=== PATIENT | male | born 1965 | race Caucasian/White ===

== ENCOUNTER 2017-01-24 12:31 | Emergency (ER) | payer OTHER ==
[~2017-01-24] VITALS: Wt 83.9 kg
[~2017-01-24 12:31] MED LIST: DAYPRO600 M1 PO; KEFLEX500 MG PO; NORCO 325 MG-51 TAB PO; SKELAXIN800 MG PO
[2017-01-24] MEDS ORDERED: IBU800 MG PO (14:32)
[2017-01-24] MEDS ORDERED: NORCO 5-325 TA1 EACH PO (14:32)
== END 2017-01-24 14:38 | disposition home or self-care (01) ==
LOC: ED 12:31
DX: S62.366A Nondisplaced fracture of neck of fifth metacarpal bone, right hand, initial encounter for closed fracture (principal); F17.200 Nicotine dependence, unspecified, uncomplicated; W22.8XXA Striking against or struck by other objects, initial encounter; Y93.89 Activity, other specified; Y92.69 Other specified industrial and construction area as the place of occurrence of the external cause; Y99.9 Unspecified external cause status

== ENCOUNTER → 2017-02-07 | Outpatient (CLI) | payer OTHER ==
[~2017-02-07] MED LIST changes: +IBU800 MG PO; +NORCO 5-325 TA1 EACH PO
== END | disposition home or self-care (01) ==
LOC: ORTHO 03:06
DX: S62.306D Unspecified fracture of fifth metacarpal bone, right hand, subsequent encounter for fracture with routine healing (principal); X58.XXXD Exposure to other specified factors, subsequent encounter

== ENCOUNTER → 2017-02-21 | Outpatient (CLI) | payer OTHER | END | disposition home or self-care (01) | LOC: ORTHO 03:10 | DX: S62.616D Displaced fracture of proximal phalanx of right little finger, subsequent encounter for fracture with routine healing (principal); X58.XXXD Exposure to other specified factors, subsequent encounter ==

== ENCOUNTER 2019-01-13 12:05 | Inpatient (IN) | payer OTHER ==
[~2019-01-13] VITALS: Ht 175.3 cm; Wt 74.9 kg
--- NOTE | ~2019-01-13 | EKG ---
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
[2019-01-13 12:06] VITALS: BP 135/84
[2019-01-13 12:31] LABS: BASO % 0.6 % (0.0-1.0); HEMATOCRIT 48.1 % (42.0-52.0); HEMOGLOBIN 16.8 g/dl (14.0-18.0); LYMPH # 0.6 10*3/uL (1.3-4.4); LYMPH % 13.6 % (27.0-41.0); MEAN CELL VOLUME 93.2 fl (80.0-94.0); MEAN CORPUSCULAR HGB 32.6 pg (27.0-31.0); MEAN CORPUSCULAR HGB CONC 34.9 g/dl (33.0-37.0); MEAN PLATELET VOLUME 9.5 fl (9.6-12.3); MONO # 0.8 10*3/uL (0.1-1.0); MONO % 16.7 % (3.0-9.0); NEUT # 3.3 10*3/uL (2.3-7.9); NEUT % 68.9 % (47.0-73.0); PLATELET COUNT AUTOMATED 164 10*3/uL (130-400); RED BLOOD COUNT 5.16 10*6/uL (4.50-5.90); RED CELL DISTRI WIDTH 12.5 % (0-14.5); WHITE BLOOD COUNT 4.7 10*3/uL (4.8-10.8)
[2019-01-13 12:40] LABS: ACT PARTIAL THROMBO TIME 28.5 SECONDS (20.8-31.5)
[2019-01-13 12:56] LABS: ALBUMIN 3.8 gm/dl (3.1-4.5); ALKALINE PHOSPHATASE 88 U/L (45-117); BUN 9 mg/dl (7-24); CHLORIDE 107 mmol/L (98-107); CREATININE 0.94 mg/dL (0.70-1.30); LIPASE 119 U/L (73-393); SGOT/AST 22 IU/L (3-35); SGPT/ALT 26 U/L (12-78); SODIUM 139 mmol/L (136-145); TOTAL PROTEIN 7.3 gm/dL (6.4-8.2)
[2019-01-13 13:01] LABS: TROPONIN I < 0.015 ng/ml (<0.045)
--- NOTE | 2019-01-13 13:17 | NUR ---
IV MEDS PER RN STUDENT
[2019-01-13 14:20] VITALS: BP 118/78
[2019-01-13 14:25] VITALS: BP 125/71
--- NOTE | 2019-01-13 14:25 | NUR ---
A 53, admitted to 5E, under the services of ILENE Dobbins MD with a diagnosis of DYSPNEA ON EXERTION, PNEUMONITIS. Chief complaint is SHORTNESS OF BREATH. Patient arrived via bed from ER. Monitor applied. Initial assessment completed. Vital signs taken and recorded. ILENE DOBBINS MD notified of admission to the unit. Orders received. See assessment for past medical history, medications and allergies. Patient and/or family oriented to unit. [address] visitation policy reviewed. Clothing/patient valuable form completed. JOSE LEONARD R
[2019-01-13 16:00] VITALS: BP 117/69
--- NOTE | 2019-01-13 16:10 | NUR ---
SPOKE WITH DR. JASS GUZMAN.
--- NOTE | 2019-01-13 18:03 | NUR ---
TOLERATED WITH FLEXERIL PO FOR BACK PAIN, RATES PAIN 7 ON PAIN SCALE 0-10. SITTING UP IN BED EATING DINNER. TOLERATING IV MEDICATIONS. CALL LIGHT IN REACH.
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
[2019-01-13 20:00] VITALS: BP 115/68
--- NOTE | 2019-01-13 21:18 | NUR ---
PT MEDICATED W/IBUPROFEN FOR C/O LEFT LOWER BACK PAIN. PT RESTING QUIETLY IN BED AT THIS TIME. CALL LIGHT IN REACH.
--- NOTE | 2019-01-13 22:00 | NUR ---
PT RESTING QUIETLY IN BED. PRN MOTRIN EFFECTIVE FOR PAIN RELIEF.
[2019-01-14] VITALS: BP 105/59
[2019-01-14 06:29] LABS: HEMATOCRIT 44.7 % (42.0-52.0); HEMOGLOBIN 15.1 g/dl (14.0-18.0); LYMPH # 0.3 10*3/uL (1.3-4.4); LYMPH % 6.2 % (27.0-41.0); MEAN CELL VOLUME 94.7 fl (80.0-94.0); MEAN CORPUSCULAR HGB CONC 33.8 g/dl (33.0-37.0); MEAN PLATELET VOLUME 9.7 fl (9.6-12.3); MONO # 0.3 10*3/uL (0.1-1.0); MONO % 5.6 % (3.0-9.0); NEUT % 87.8 % (47.0-73.0); PLATELET COUNT AUTOMATED 171 10*3/uL (130-400); RED BLOOD COUNT 4.72 10*6/uL (4.50-5.90); RED CELL DISTRI WIDTH 12.5 % (0-14.5); WHITE BLOOD COUNT 4.5 10*3/uL (4.8-10.8)
[2019-01-14 06:38] LABS: ALBUMIN 3.4 gm/dl (3.1-4.5); ALKALINE PHOSPHATASE 73 U/L (45-117); BUN 15 mg/dl (7-24); CHLORIDE 105 mmol/L (98-107); CREATININE 0.91 mg/dL (0.70-1.30); PHOSPHOROUS 4.6 mg/dL (2.5-4.9); POTASSIUM 3.9 mmol/L (3.5-5.1); SGOT/AST 14 IU/L (3-35); SGPT/ALT 22 U/L (12-78); SODIUM 139 mmol/L (136-145); TOTAL PROTEIN 6.8 gm/dL (6.4-8.2)
[2019-01-14 06:44] LABS: THYROID STIM HORMONE (HS) 0.438 uIU/ml (0.358-4.75)
--- NOTE | 2019-01-14 07:10 | NUR ---
PT ASLEEP IN BED. REPORT RECIEVED FROM CHRISTINE BOWEN. RESPERATIONS ARE EASY AND NONLABORED. NO S/S OF DISTRESS NOTED. WILL CONTINUE TO MONITOR.
[2019-01-14 08:00] VITALS: BP 105/56
--- NOTE | 2019-01-14 08:15 | NUR ---
24 HR CHART CHECK COMPLETE.
--- NOTE | 2019-01-14 11:00 | NUR ---
Press Operator Automatic in to talk to patient. Patient states lives at home alone with his family occasionally checking in on him. There are 20 steps in the home. Physician: Dr. Pfeiffer Pharmacy: none Home health services: none Patient's level of ADLs: INDEPENDENT Patient has working utilities: yes DME: none Follow-up physician's appointment after d/c: he prefers to make his own follow up appt after discharge Does patient want to access PORTAL?: no Discharge plan discussed with patient. He lives at home alone with his family occasionally checking in on him. He is independent in his ADLs and ambulation. Discussed home health care services and he denies any home needs at this time. He works at [employer]. When medically stable he will be discharged to home. PEG VALENCIA
[2019-01-14 12:00] VITALS: BP 118/59
--- NOTE | 2019-01-14 13:07 | NUR ---
PT IS RESTING IN BED AT THIS TIME. NO C/O PAIN OR DISCOMFORT. WILL CONTINUE TO MONITOR.
[2019-01-14] MEDS ORDERED: CYCLOBENZAPRINE10 MG PO (13:22)
[2019-01-14] MEDS ORDERED: SYMB160 INH (13:22)
[2019-01-14] MEDS ORDERED: VENTOLIN,PR2 MG/5 ML PO (13:22)
[2019-01-14] MEDS ORDERED: LEVAQUIN750 M1 PO (13:22)
[2019-01-14] MEDS ORDERED: PREDNISONE10 MG PO (13:22)
--- NOTE | 2019-01-14 13:39 | NUR ---
Discharge instructions reviewed with patient/family. Patient receptive and verbalizes understanding. Follow-up care arranged. Written instructions given to patient/family. BEN WILLIS
== END 2019-01-14 13:39 | disposition home or self-care (01) | DRG 190 ==
LOC: ED 12:05 → 5E 13:15 → EDHOLD 13:15 → 5E 13:29
PROVIDERS: Emergency Medicine; Internal Medicine Nephrology; ADMIT Internal Medicine
DX: J44.0 Chronic obstructive pulmonary disease with (acute) lower respiratory infection (principal); J18.9 Pneumonia, unspecified organism; M54.9 Dorsalgia, unspecified; F17.210 Nicotine dependence, cigarettes, uncomplicated; Z71.6 Tobacco abuse counseling; Z87.81 Personal history of (healed) traumatic fracture; Z83.3 Family history of diabetes mellitus; Z81.8 Family history of other mental and behavioral disorders; Z79.899 Other long term (current) drug therapy

== ENCOUNTER → 2019-02-18 | Outpatient (CLI) | payer OTHER ==
[~2019-02-18] MED LIST changes: +CYCLOBENZAPRINE10 MG PO; +LEVAQUIN750 M1 PO; +PREDNISONE10 MG PO; +SYMB160 INH; +VENTOLIN,PR2 MG/5 ML PO
[2019-02-19 07:04] LABS: HEPATITIS B SURFACE AG Negative (Negative); HEPATITIS C VIRUS ANTIBODY <0.1 s/co (0.0-0.9)
[2019-02-19 09:09] LABS: PROSTATE SPECIFIC AG FREE 0.26 ng/mL; PROSTATE SPECIFIC AG, SERUM 0.6 ng/mL (0.0-4.0)
[2019-02-20 12:04] LABS: TESTOSTERONE FREE, (DIRECT) 3.6 pg/mL (7.2-24.0)
== END | disposition home or self-care (01) ==
LOC: LAB 11:50
PROVIDERS: Internal Medicine
DX: Z11.3 Encounter for screening for infections with a predominantly sexual mode of transmission (principal); R79.89 Other specified abnormal findings of blood chemistry

== ENCOUNTER 2019-11-25 10:10 | Emergency (ER) | payer OTHER ==
[~2019-11-25] VITALS: Ht 177.8 cm; Wt 77.1 kg
== END 2019-11-25 12:26 | disposition home or self-care (01) ==
LOC: ED 10:10
DX: S60.222A Contusion of left hand, initial encounter (principal); W23.0XXA Caught, crushed, jammed, or pinched between moving objects, initial encounter; Y93.89 Activity, other specified; Y92.89 Other specified places as the place of occurrence of the external cause; Y99.0 Civilian activity done for income or pay

== ENCOUNTER → 2024-07-15 | Outpatient (CLI) | payer OTHER | END | disposition home or self-care (01) | LOC: RAD 10:28 | PROVIDERS: ATTEND Family Medicine | DX: J44.9 Chronic obstructive pulmonary disease, unspecified (principal); J84.9 Interstitial pulmonary disease, unspecified; R06.02 Shortness of breath ==

== ENCOUNTER → 2024-07-16 | Outpatient (CLI) | payer OTHER ==
[2024-07-16 10:07] LABS: BASO % 0.4 % (0.0-1.0); EOS # 0.2 10*3/uL (0.0-0.4); EOS % 2.4 % (1.0-4.0); HEMATOCRIT 41.6 % (42.0-52.0); LYMPH # 0.4 10*3/uL (1.3-4.4); MEAN CELL VOLUME 84.4 fl (80.0-94.0); MEAN CORPUSCULAR HGB 27.8 pg (27.0-31.0); MEAN CORPUSCULAR HGB CONC 32.9 g/dl (33.0-37.0); MEAN PLATELET VOLUME 8.9 fl (9.6-12.3); MONO # 0.7 10*3/uL (0.1-1.0); MONO % 9.4 % (3.0-9.0); NEUT # 5.9 10*3/uL (2.3-7.9); NEUT % 82.5 % (47.0-73.0); PLATELET COUNT AUTOMATED 238 10*3/uL (130-400); RED BLOOD COUNT 4.93 10*6/uL (4.50-5.90); RED CELL DISTRI WIDTH 14.5 % (0-14.5); RETICULOCYTE % 3.04 % (0.50-2.50); WHITE BLOOD COUNT 7.1 10*3/uL (4.8-10.8)
[2024-07-16 10:09] LABS: BILIRUBIN Negative (Negative); BLOOD 2+ (Negative); CLARITY Clear (Clear); COLOR Yellow (Yellow); GLUCOSE Negative (Negative); KETONE Negative (Negative); LEUKO ESTERASE 2+ (Negative); NITRITE Negative (Negative); PH 5.5 (4.5-8.0); UROBILINOGEN 0.2 E.U./dl (0.0-1.0)
[2024-07-16 10:27] LABS: MUCOUS TRACE; RBC 0-2 rbc/hpf (0-2); WBC 16-20 wbc/hpf (0-5)
[2024-07-16 10:30] LABS: ALKALINE PHOSPHATASE 135 U/L (46-116); BUN 14 mg/dl (9-23); CHLORIDE 107 mmol/L (98-107); GAMMA GLUTAMYL TRANSPEPTIDASE 42 U/L (0-73); POTASSIUM 3.3 mmol/L (3.4-5.1); SGPT/ALT 13 U/L (5-49); TOTAL PROTEIN 6.9 gm/dL (6.0-8.0)
== END | disposition home or self-care (01) ==
LOC: LAB 09:37
PROVIDERS: ATTEND Family Medicine
DX: R79.89 Other specified abnormal findings of blood chemistry (principal); R53.83 Other fatigue; E78.5 Hyperlipidemia, unspecified

== ENCOUNTER 2024-08-05 12:56 | Inpatient (IN) | payer OTHER ==
[~2024-08-05] VITALS: Ht 177.8 cm; Wt 82.8 kg
[2024-08-05 13:10] VITALS: BP 148/100
[2024-08-05 13:23] LABS: BASO % 0.5 % (0.0-1.0); EOS # 0.1 10*3/uL (0.0-0.4); HEMATOCRIT 45.9 % (42.0-52.0); LYMPH # 0.2 10*3/uL (1.3-4.4); LYMPH % 2.8 % (27.0-41.0); MEAN CELL VOLUME 85.8 fl (80.0-94.0); MEAN CORPUSCULAR HGB 27.9 pg (27.0-31.0); MEAN CORPUSCULAR HGB CONC 32.5 g/dl (33.0-37.0); MEAN PLATELET VOLUME 8.7 fl (9.6-12.3); MONO # 0.5 10*3/uL (0.1-1.0); NEUT # 7.2 10*3/uL (2.3-7.9); NEUT % 89.3 % (47.0-73.0); PLATELET COUNT AUTOMATED 249 10*3/uL (130-400); RED BLOOD COUNT 5.35 10*6/uL (4.50-5.90); RED CELL DISTRI WIDTH 14.6 % (0-14.5); WHITE BLOOD COUNT 8.1 10*3/uL (4.8-10.8)
[2024-08-05 13:34] LABS: ACT PARTIAL THROMBO TIME 27.3 SECONDS (20.0-32.1)
[2024-08-05 13:48] LABS: ALKALINE PHOSPHATASE 170 U/L (46-116); BUN 11 mg/dl (9-23); CHLORIDE 103 mmol/L (98-107); POTASSIUM 3.2 mmol/L (3.4-5.1); SGPT/ALT 16 U/L (5-49); TOTAL PROTEIN 7.4 gm/dL (6.0-8.0)
[2024-08-05] MEDS ORDERED: Ceftriaxone Sodium 1 GM/10 ML SYR IV ONE ×2 (15:25→15:55)
[2024-08-05] MEDS ORDERED: AZITHROMYCIN 250 ML IV ONE (15:30)
[2024-08-05] MEDS ORDERED: POTASSIUM CHLORIDE 20 MEQ TAB PO ONE (15:40)
[2024-08-05] MEDS ORDERED: DICYCLOMINE HYD10 MG PO (15:47)
[2024-08-05] MEDS ORDERED: LANSOPRAZOLE30 MG PO (15:48)
[2024-08-05] MEDS ORDERED: Albuterol Sulf/Ipratropium 3 ML VIAL NEB SCH (16:40)
[2024-08-05] MEDS ORDERED: Pantoprazole Sodium 20 MG TAB PO SCH (18:00)
[2024-08-05 21:01] VITALS: BP 152/96
[2024-08-05 23:42] VITALS: BP 157/98
[2024-08-06 00:27] VITALS: BP 143/101
[2024-08-06 06:44] LABS: BASO % 0.6 % (0.0-1.0); EOS # 0.1 10*3/uL (0.0-0.4); EOS % 1.6 % (1.0-4.0); HEMATOCRIT 40.2 % (42.0-52.0); LYMPH # 0.3 10*3/uL (1.3-4.4); LYMPH % 4.2 % (27.0-41.0); MEAN CELL VOLUME 84.5 fl (80.0-94.0); MEAN CORPUSCULAR HGB 27.9 pg (27.0-31.0); MEAN CORPUSCULAR HGB CONC 33.1 g/dl (33.0-37.0); MEAN PLATELET VOLUME 9.2 fl (9.6-12.3); MONO # 0.6 10*3/uL (0.1-1.0); NEUT # 5.9 10*3/uL (2.3-7.9); NEUT % 85.3 % (47.0-73.0); PLATELET COUNT AUTOMATED 228 10*3/uL (130-400); RED BLOOD COUNT 4.76 10*6/uL (4.50-5.90); RED CELL DISTRI WIDTH 14.6 % (0-14.5); WHITE BLOOD COUNT 6.9 10*3/uL (4.8-10.8)
[2024-08-06 06:58] LABS: ALKALINE PHOSPHATASE 145 U/L (46-116); BUN 9 mg/dl (9-23); CHLORIDE 105 mmol/L (98-107); POTASSIUM 3.1 mmol/L (3.4-5.1); SGPT/ALT 11 U/L (5-49); TOTAL PROTEIN 6.2 gm/dL (6.0-8.0)
[2024-08-06 09:03] VITALS: BP 162/103
[2024-08-06] MEDS ORDERED: Enoxaparin Sodium 40 MG/0.4 ML SYR SC SCH (10:00)
[2024-08-06] MEDS ORDERED: methylPREDNISolone sod succ 40 MG VIAL IV SCH (14:00)
[2024-08-06 14:10] VITALS: BP 160/88
[2024-08-06] MEDS ORDERED: POTASSIUM CHLORIDE 20 MEQ TAB PO ONE (15:00)
[2024-08-06] MEDS ORDERED: Dicyclomine Hydrochloride 10 MG CAP PO PRN (15:40)
[2024-08-06 16:00] VITALS: BP 166/88
[2024-08-06] MEDS ORDERED: Ceftriaxone Sodium 2 GM in SYRINGE INFUSION 20 ML IV SCH (16:00)
[2024-08-06] MEDS ORDERED: AZITHROMYCIN 250 ML IV SCH (17:00)
[2024-08-06 20:00] VITALS: BP 160/80
[2024-08-07] VITALS: BP 160/70
[2024-08-07 07:11] LABS: HEMATOCRIT 42.5 % (42.0-52.0); MEAN CORPUSCULAR HGB 28.3 pg (27.0-31.0); MEAN CORPUSCULAR HGB CONC 32.9 g/dl (33.0-37.0); MEAN PLATELET VOLUME 9.2 fl (9.6-12.3); PLATELET COUNT AUTOMATED 219 10*3/uL (130-400); RED BLOOD COUNT 4.94 10*6/uL (4.50-5.90); RED CELL DISTRI WIDTH 14.7 % (0-14.5); WHITE BLOOD COUNT 7.6 10*3/uL (4.8-10.8)
[2024-08-07 07:13] LABS: MANUAL DIFF REFLEX YES
[2024-08-07 07:20] LABS: ALKALINE PHOSPHATASE 140 U/L (46-116); BUN 10 mg/dl (9-23); CHLORIDE 105 mmol/L (98-107); POTASSIUM 3.9 mmol/L (3.4-5.1); SGPT/ALT 12 U/L (5-49); TOTAL PROTEIN 6.5 gm/dL (6.0-8.0)
[2024-08-07 07:47] LABS: BASOPHILS 2 % (0-1); PLATELET SUFFICIENCY NORMAL (NORMAL); TOTAL CELLS COUNTED 100 #CELLS
[2024-08-07 08:00] VITALS: BP 152/96
[2024-08-07] MEDS ORDERED: SODIUM CHLORIDE Nasal 44 ml bottle NAS PRN (10:45)
[2024-08-07 12:00] VITALS: BP 145/90
[2024-08-07] MEDS ORDERED: methylPREDNISolone sod succ 125 MG VIAL IV SCH (14:00)
[2024-08-07] MEDS ORDERED: Ondansetron Hydrochloride 4 MG TAB SL SCH (14:00)
[2024-08-07 16:00] VITALS: BP 128/76
[2024-08-07 20:00] VITALS: BP 126/96
[2024-08-08] VITALS: BP 156/95
[2024-08-08 08:00] VITALS: BP 115/76; BP 141/82
[2024-08-08 12:00] VITALS: BP 153/80
[2024-08-08] MEDS ORDERED: Lidocaine Hydrochloride 30 ML VIAL ONE (12:24)
[2024-08-08] MEDS ORDERED: MORPHINE Sulfate 2 MG/ML SYR IV PRN (12:50)
[2024-08-08 14:35] LABS: BF LYMPHOCYTES 17 %; BF MACROPHAGES 29 %; BF MESOTHELIALS 14 %; BF NEUTROPHILS 38 %
[2024-08-08 16:00] VITALS: BP 153/95
[2024-08-08] MEDS ORDERED: HYDROmorphONE Hydrochloride 0.5 MG/0.5 ML SYRINGE IV ONE (16:15)
[2024-08-08 20:00] VITALS: BP 135/87; BP 155/93
[2024-08-08] MEDS ORDERED: ZOLPIDEM TARTRATE 10 MG TAB PO PRN (22:00)
[2024-08-09] VITALS: BP 135/87
[2024-08-09 06:32] LABS: HEMATOCRIT 42.2 % (42.0-52.0); MEAN CELL VOLUME 87.9 fl (80.0-94.0); MEAN CORPUSCULAR HGB 27.9 pg (27.0-31.0); MEAN CORPUSCULAR HGB CONC 31.8 g/dl (33.0-37.0); MEAN PLATELET VOLUME 9.5 fl (9.6-12.3); PLATELET COUNT AUTOMATED 237 10*3/uL (130-400); RED CELL DISTRI WIDTH 14.9 % (0-14.5); WHITE BLOOD COUNT 9.5 10*3/uL (4.8-10.8)
[2024-08-09 06:34] LABS: MANUAL DIFF REFLEX YES
[2024-08-09 06:46] LABS: ALKALINE PHOSPHATASE 158 U/L (46-116); BUN 18 mg/dl (9-23); CHLORIDE 104 mmol/L (98-107); SGPT/ALT 35 U/L (5-49)
[2024-08-09 07:08] LABS: OVALOCYTES FEW; PLATELET SUFFICIENCY NORMAL (NORMAL); POLYCHROMASIA SLIGHT; TOTAL CELLS COUNTED 100 #CELLS
[2024-08-09 08:00] VITALS: BP 145/96
[2024-08-09 12:00] VITALS: BP 112/81
[2024-08-09 16:00] VITALS: BP 146/98
[2024-08-09 20:00] VITALS: BP 132/79
[2024-08-10] VITALS: BP 140/67
[2024-08-10 08:00] VITALS: BP 157/97
[2024-08-10 12:00] VITALS: BP 140/86
[2024-08-10 16:00] VITALS: BP 152/92
[2024-08-10 20:00] VITALS: BP 147/101
[2024-08-11] VITALS: BP 133/83
[2024-08-11 08:00] VITALS: BP 130/60
[2024-08-11 12:00] VITALS: BP 134/88
[2024-08-11 16:00] VITALS: BP 145/85
[2024-08-11 21:00] VITALS: BP 140/20; BP 140/70
[2024-08-12] VITALS: BP 136/87
[2024-08-12 08:00] VITALS: BP 143/89
[2024-08-12 12:00] VITALS: BP 134/92
[2024-08-12 16:00] VITALS: BP 131/65
[2024-08-12 20:00] VITALS: BP 144/83
[2024-08-13 00:54] VITALS: BP 158/96
[2024-08-13 05:06] LABS: BILIRUBIN Negative (Negative); BLOOD 3+ (Negative); CLARITY Cloudy (Clear); COLOR Red (Yellow); GLUCOSE Negative (Negative); KETONE Negative (Negative); LEUKO ESTERASE 1+ (Negative); NITRITE Negative (Negative); SPECIFIC GRAVITY 1.015 (1.001-1.030); UROBILINOGEN 0.2 E.U./dl (0.0-1.0)
[2024-08-13 05:30] LABS: RBC TNTC rbc/hpf (0-2); WBC 16-20 wbc/hpf (0-5)
[2024-08-13 06:47] LABS: HEMATOCRIT 44.5 % (42.0-52.0); MEAN CELL VOLUME 87.6 fl (80.0-94.0); MEAN CORPUSCULAR HGB 28.1 pg (27.0-31.0); MEAN CORPUSCULAR HGB CONC 32.1 g/dl (33.0-37.0); MEAN PLATELET VOLUME 9.3 fl (9.6-12.3); PLATELET COUNT AUTOMATED 205 10*3/uL (130-400); RED BLOOD COUNT 5.08 10*6/uL (4.50-5.90); WHITE BLOOD COUNT 8.2 10*3/uL (4.8-10.8)
[2024-08-13 07:07] LABS: MANUAL DIFF REFLEX YES
[2024-08-13 07:11] LABS: ALKALINE PHOSPHATASE 157 U/L (46-116); BUN 23 mg/dl (9-23); CHLORIDE 100 mmol/L (98-107); POTASSIUM 4.8 mmol/L (3.4-5.1); SGPT/ALT 90 U/L (5-49)
[2024-08-13 08:00] VITALS: BP 128/64
[2024-08-13 08:26] LABS: ATYPICAL LYMPHS 1 % (0-0); PLATELET SUFFICIENCY NORMAL (NORMAL); TOTAL CELLS COUNTED 100 #CELLS
[2024-08-13 12:00] VITALS: BP 134/86
[2024-08-13] MEDS ORDERED: ONDANSETRON HYDR4 MG PO (16:38)
== END 2024-08-13 18:07 | disposition home or self-care (01) | DRG 189 ==
LOC: ED 12:56 → EDHOLD 16:15 → 4E 16:15
PROVIDERS: Internal Medicine; Internal Medicine Critical Care Medicine; Student in an Organized Health Care Education/Training Program; ADMIT Internal Medicine; ATTEND Internal Medicine
PROC: 0W9930Z Drainage of Right Pleural Cavity with Drainage Device, Percutaneous Approach (ICD-10-PCS; principal; 2024-08-08)
DX: J96.01 Acute respiratory failure with hypoxia (principal); J18.9 Pneumonia, unspecified organism; J44.1 Chronic obstructive pulmonary disease with (acute) exacerbation; C34.90 Malignant neoplasm of unspecified part of unspecified bronchus or lung; J91.8 Pleural effusion in other conditions classified elsewhere; R04.2 Hemoptysis; N28.89 Other specified disorders of kidney and ureter; J43.9 Emphysema, unspecified; E87.6 Hypokalemia; R73.9 Hyperglycemia, unspecified; E87.5 Hyperkalemia; R91.1 Solitary pulmonary nodule; R59.1 Generalized enlarged lymph nodes; K21.9 Gastro-esophageal reflux disease without esophagitis; Z83.3 Family history of diabetes mellitus; Z81.8 Family history of other mental and behavioral disorders; Z71.6 Tobacco abuse counseling

== ENCOUNTER → 2024-08-24 | Outpatient (CLI) | payer OTHER ==
[~2024-08-24] MED LIST changes: +DICYCLOMINE HYD10 MG PO; +IOHEXOL 300 MG/ML 100 ML VIAL IV ONE; +LANSOPRAZOLE30 MG PO; +ONDANSETRON HYDR4 MG PO
== END | disposition home or self-care (01) ==
LOC: CT 01:39
PROVIDERS: ATTEND Family Medicine
DX: N20.0 Calculus of kidney (principal); R10.84 Generalized abdominal pain; R10.2 Pelvic and perineal pain; J90 Pleural effusion, not elsewhere classified; K76.0 Fatty (change of) liver, not elsewhere classified

== ENCOUNTER → 2024-08-31 | Outpatient (CLI) | payer OTHER ==
[~2024-08-31] MED LIST changes: -IOHEXOL 300 MG/ML 100 ML VIAL IV ONE
[2024-08-31 09:41] LABS: BASO % 0.6 % (0.0-1.0); EOS # 0.2 10*3/uL (0.0-0.4); EOS % 3.7 % (1.0-4.0); HEMATOCRIT 46.5 % (42.0-52.0); MEAN CELL VOLUME 87.7 fl (80.0-94.0); MEAN CORPUSCULAR HGB 28.3 pg (27.0-31.0); MEAN CORPUSCULAR HGB CONC 32.3 g/dl (33.0-37.0); MONO # 0.4 10*3/uL (0.1-1.0); MONO % 6.7 % (3.0-9.0); NEUT # 5.3 10*3/uL (2.3-7.9); NEUT % 82.3 % (47.0-73.0); PLATELET COUNT AUTOMATED 152 10*3/uL (130-400); RED CELL DISTRI WIDTH 14.6 % (0-14.5); WHITE BLOOD COUNT 6.4 10*3/uL (4.8-10.8)
[2024-08-31 10:09] LABS: ALKALINE PHOSPHATASE 213 U/L (46-116); BUN 14 mg/dl (9-23); CHLORIDE 105 mmol/L (98-107); POTASSIUM 3.7 mmol/L (3.4-5.1); SGPT/ALT 20 U/L (5-49); TOTAL PROTEIN 6.8 gm/dL (6.0-8.0)
[2024-08-31 13:24] LABS: BILIRUBIN Negative (Negative); BLOOD Negative (Negative); CLARITY Clear (Clear); COLOR Yellow (Yellow); GLUCOSE Negative (Negative); KETONE Negative (Negative); LEUKO ESTERASE Trace (Negative); NITRITE Negative (Negative); PH 5.5 (4.5-8.0); SPECIFIC GRAVITY 1.015 (1.001-1.030); UROBILINOGEN 0.2 E.U./dl (0.0-1.0)
[2024-08-31 13:34] LABS: MUCOUS TRACE; RBC 0-2 rbc/hpf (0-2)
== END | disposition home or self-care (01) ==
LOC: LAB 09:11
PROVIDERS: ATTEND Urology
DX: R31.9 Hematuria, unspecified (principal); N28.89 Other specified disorders of kidney and ureter

== ENCOUNTER 2024-09-05 15:48 | Inpatient (IN) | payer OTHER ==
[~2024-09-05] VITALS: Ht 178 cm; Wt 81.6 kg
[2024-09-05 16:11] VITALS: BP 135/94
[2024-09-05] MEDS ORDERED: FUROSEMIDE20 M1 PO (16:13)
[2024-09-05] MEDS ORDERED: HYDROXYZINE HCL25 MG PO (16:14)
[2024-09-05] MEDS ORDERED: POTASSIUM CHLO10 ME5 PO (16:14)
[2024-09-05] MEDS ORDERED: AZITHROMYCIN 250 MG TAB PO ONE ×2 (16:35→17:30)
[2024-09-05] MEDS ORDERED: MAGNESIUM SULFATE 50 ML IV ONE (16:35)
[2024-09-05] MEDS ORDERED: methylPREDNISolone sod succ 125 MG VIAL IV ONE (16:35)
[2024-09-05] MEDS ORDERED: Albuterol Sulfate 2.5 MG/3 ML VIAL NEB ONE (16:35)
[2024-09-05 16:57] LABS: BASO % 0.5 % (0.0-1.0); EOS # 0.2 10*3/uL (0.0-0.4); EOS % 2.5 % (1.0-4.0); HEMATOCRIT 41.6 % (42.0-52.0); MEAN CELL VOLUME 88.1 fl (80.0-94.0); MEAN CORPUSCULAR HGB 28.4 pg (27.0-31.0); MEAN CORPUSCULAR HGB CONC 32.2 g/dl (33.0-37.0); MEAN PLATELET VOLUME 8.9 fl (9.6-12.3); MONO # 0.6 10*3/uL (0.1-1.0); MONO % 10.2 % (3.0-9.0); NEUT # 4.9 10*3/uL (2.3-7.9); NEUT % 81.4 % (47.0-73.0); PLATELET COUNT AUTOMATED 229 10*3/uL (130-400); RED BLOOD COUNT 4.72 10*6/uL (4.50-5.90); RED CELL DISTRI WIDTH 14.6 % (0-14.5)
[2024-09-05 17:13] LABS: BUN 17 mg/dl (9-23); CHLORIDE 104 mmol/L (98-107); POTASSIUM 3.9 mmol/L (3.4-5.1)
[2024-09-05] MEDS ORDERED: Ceftriaxone Sodium 1 GM/10 ML SYR IV ONE (17:30)
[2024-09-05] MEDS ORDERED: TEMAZEPAM 15 MG CAP PO PRN (18:10)
[2024-09-05] MEDS ORDERED: Ondansetron Hydrochloride 4 MG/2 ML VIAL IV PRN (18:10)
[2024-09-05] MEDS ORDERED: BISACODYL 5 MG TAB PO PRN (18:10)
[2024-09-05] MEDS ORDERED: ACETAMINOPHEN 650 MG SUPP R PRN (18:10)
[2024-09-05] MEDS ORDERED: ACETAMINOPHEN 325 MG TAB PO PRN (18:10)
[2024-09-05] MEDS ORDERED: Magnesium Hydroxide 30 ML UDC PO PRN (18:10)
[2024-09-05] MEDS ORDERED: GUAIFENESIN 600 MG TAB ER PO PRN (18:15)
[2024-09-05] MEDS ORDERED: Albuterol Sulf/Ipratropium 3 ML VIAL NEB PRN (18:15)
[2024-09-05] MEDS ORDERED: SODIUM CHLORIDE 0.9% 500 ML IV ONE (18:30)
[2024-09-05] MEDS ORDERED: SODIUM CHLORIDE 0.9% 1,000 ML IV SCH (18:40)
[2024-09-05 19:30] VITALS: BP 148/96
[2024-09-05] MEDS ORDERED: IOHEXOL 350 MG/ML 100 ML VIAL IV ONE (19:40)
[2024-09-05] MEDS ORDERED: SODIUM CHLORIDE 0.9% 100 ML BAG IV ONE (19:40)
[2024-09-05] MEDS ORDERED: Enoxaparin Sodium 80 MG/0.8 ML SYR SC SCH (20:00)
[2024-09-05] MEDS ORDERED: hydrOXYzine hydrochloride 50 MG/ML VIAL IM PRN (20:00)
[2024-09-05] MEDS ORDERED: Dicyclomine Hydrochloride 10 MG CAP PO PRN (20:00)
[2024-09-05 20:45] VITALS: BP 140/90
[2024-09-06] VITALS (7 sets, daily range): BP systolic 122–172; BP diastolic 85–98
[2024-09-06 04:12] LABS: HEMATOCRIT 40.1 % (42.0-52.0); MEAN CELL VOLUME 86.8 fl (80.0-94.0); MEAN CORPUSCULAR HGB 28.1 pg (27.0-31.0); MEAN CORPUSCULAR HGB CONC 32.4 g/dl (33.0-37.0); MEAN PLATELET VOLUME 9.4 fl (9.6-12.3); PLATELET COUNT AUTOMATED 231 10*3/uL (130-400); RED BLOOD COUNT 4.62 10*6/uL (4.50-5.90); RED CELL DISTRI WIDTH 14.6 % (0-14.5); WHITE BLOOD COUNT 4.8 10*3/uL (4.8-10.8)
[2024-09-06 04:14] LABS: MANUAL DIFF REFLEX YES
[2024-09-06 04:36] LABS: ALKALINE PHOSPHATASE 222 U/L (46-116); BUN 15 mg/dl (9-23); CHLORIDE 107 mmol/L (98-107); POTASSIUM 4.4 mmol/L (3.4-5.1); SGPT/ALT 19 U/L (5-49); TOTAL PROTEIN 6.1 gm/dL (6.0-8.0)
[2024-09-06 04:48] LABS: PLATELET SUFFICIENCY NORMAL (NORMAL); TOTAL CELLS COUNTED 100 #CELLS
[2024-09-06 05:00] LABS: ACT PARTIAL THROMBO TIME 29.8 SECONDS (20.0-32.1)
[2024-09-06] MEDS ORDERED: Pantoprazole Sodium 40 MG TAB PO SCH (06:00)
[2024-09-06] MEDS ORDERED: Enoxaparin Sodium 40 MG/0.4 ML SYR SC SCH ×2 (10:00)
[2024-09-06] MEDS ORDERED: AZITHROMYCIN 250 MG TAB PO SCH (10:00)
[2024-09-06] MEDS ORDERED: FUROSEMIDE 20 MG/2 ML VIAL IV ONE (12:55)
[2024-09-06] MEDS ORDERED: Ceftriaxone Sodium 1 GM in SYRINGE INFUSION 10 ML IV SCH (17:00)
[2024-09-07] VITALS: BP 159/97
[2024-09-07] MEDS ORDERED: Acetaminophen/Hydrocodone 5 MG/325 MG TABLET PO ONE (06:05)
[2024-09-07 06:37] LABS: BASO % 0.5 % (0.0-1.0); EOS # 0.2 10*3/uL (0.0-0.4); EOS % 2.8 % (1.0-4.0); MEAN CELL VOLUME 88.3 fl (80.0-94.0); MEAN CORPUSCULAR HGB 28.6 pg (27.0-31.0); MEAN CORPUSCULAR HGB CONC 32.4 g/dl (33.0-37.0); MEAN PLATELET VOLUME 9.4 fl (9.6-12.3); MONO # 0.6 10*3/uL (0.1-1.0); NEUT # 5.3 10*3/uL (2.3-7.9); NEUT % 83.2 % (47.0-73.0); RED BLOOD COUNT 4.19 10*6/uL (4.50-5.90); RED CELL DISTRI WIDTH 14.6 % (0-14.5); WHITE BLOOD COUNT 6.4 10*3/uL (4.8-10.8)
[2024-09-07 06:38] LABS: PLATELET COUNT AUTOMATED 307 10*3/uL (130-400)
[2024-09-07 08:00] VITALS: BP 117/76
[2024-09-07] MEDS ORDERED: Acetaminophen/Hydrocodone 5 MG/325 MG TABLET PO PRN (09:05)
[2024-09-07 12:00] VITALS: BP 123/80
[2024-09-07] MEDS ORDERED: FUROSEMIDE 40 MG/4 ML VIAL IV ONE (13:50)
[2024-09-07] MEDS ORDERED: SODIUM CHLORIDE Nasal 44 ml bottle NAS PRN (15:30)
[2024-09-07 16:00] VITALS: BP 125/82
[2024-09-07 20:00] VITALS: BP 136/67
[2024-09-08] VITALS: BP 135/96
[2024-09-08 06:30] LABS: BASO % 0.8 % (0.0-1.0); EOS # 0.2 10*3/uL (0.0-0.4); HEMATOCRIT 39.5 % (42.0-52.0); MEAN CELL VOLUME 89.2 fl (80.0-94.0); MEAN CORPUSCULAR HGB 27.8 pg (27.0-31.0); MEAN CORPUSCULAR HGB CONC 31.1 g/dl (33.0-37.0); MEAN PLATELET VOLUME 9.1 fl (9.6-12.3); MONO # 0.5 10*3/uL (0.1-1.0); MONO % 10.1 % (3.0-9.0); NEUT % 79.2 % (47.0-73.0); PLATELET COUNT AUTOMATED 286 10*3/uL (130-400); RED BLOOD COUNT 4.43 10*6/uL (4.50-5.90); RED CELL DISTRI WIDTH 14.5 % (0-14.5); WHITE BLOOD COUNT 5.1 10*3/uL (4.8-10.8)
[2024-09-08 08:00] VITALS: BP 147/96
[2024-09-08 12:00] VITALS: BP 156/93
[2024-09-08 15:00] VITALS: BP 146/90
[2024-09-08 16:00] VITALS: BP 157/100
[2024-09-08] MEDS ORDERED: Albuterol Sulf/Ipratropium 3 ML VIAL NEB SCH (18:15)
[2024-09-08 20:00] VITALS: BP 152/93
[2024-09-09] VITALS: BP 131/97
[2024-09-09 06:27] LABS: BASO # 0.1 10*3/uL (0.0-0.1); EOS # 0.2 10*3/uL (0.0-0.4); EOS % 3.8 % (1.0-4.0); HEMATOCRIT 39.6 % (42.0-52.0); MEAN CELL VOLUME 88.6 fl (80.0-94.0); MEAN CORPUSCULAR HGB 28.4 pg (27.0-31.0); MEAN CORPUSCULAR HGB CONC 32.1 g/dl (33.0-37.0); MEAN PLATELET VOLUME 9.2 fl (9.6-12.3); MONO # 0.5 10*3/uL (0.1-1.0); MONO % 10.1 % (3.0-9.0); NEUT # 3.9 10*3/uL (2.3-7.9); NEUT % 78.7 % (47.0-73.0); PLATELET COUNT AUTOMATED 277 10*3/uL (130-400); RED BLOOD COUNT 4.47 10*6/uL (4.50-5.90); RED CELL DISTRI WIDTH 14.6 % (0-14.5)
[2024-09-09 06:53] LABS: BUN 14 mg/dl (9-23); CHLORIDE 102 mmol/L (98-107); POTASSIUM 3.3 mmol/L (3.4-5.1)
[2024-09-09] MEDS ORDERED: POTASSIUM CHLORIDE 20 MEQ TAB PO ONE (07:50)
[2024-09-09 08:00] VITALS: BP 162/94
[2024-09-09] MEDS ORDERED: amLODIPine besylate 5 MG TAB PO SCH (10:00)
[2024-09-09] MEDS ORDERED: FUROSEMIDE 40 MG/4 ML VIAL IV SCH (10:00)
[2024-09-09] MEDS ORDERED: Acetaminophen/Hydrocodone 5 MG/325 MG TABLET PO PRN (10:45)
[2024-09-09 12:00] VITALS: BP 160/93
[2024-09-09 16:00] VITALS: BP 130/60
[2024-09-09 20:00] VITALS: BP 132/92
[2024-09-10] VITALS: BP 136/90
[2024-09-10 06:51] LABS: BUN 14 mg/dl (9-23); CHLORIDE 101 mmol/L (98-107); POTASSIUM 3.8 mmol/L (3.4-5.1)
[2024-09-10 06:57] LABS: BASO # 0.1 10*3/uL (0.0-0.1); BASO % 0.9 % (0.0-1.0); EOS # 0.1 10*3/uL (0.0-0.4); EOS % 2.1 % (1.0-4.0); HEMATOCRIT 39.6 % (42.0-52.0); MEAN CELL VOLUME 87.2 fl (80.0-94.0); MEAN CORPUSCULAR HGB CONC 32.1 g/dl (33.0-37.0); MONO # 0.6 10*3/uL (0.1-1.0); MONO % 9.4 % (3.0-9.0); NEUT # 5.5 10*3/uL (2.3-7.9); PLATELET COUNT AUTOMATED 288 10*3/uL (130-400); RED BLOOD COUNT 4.54 10*6/uL (4.50-5.90); RED CELL DISTRI WIDTH 14.6 % (0-14.5); WHITE BLOOD COUNT 6.7 10*3/uL (4.8-10.8)
[2024-09-10 08:00] VITALS: BP 155/94
[2024-09-10 12:00] VITALS: BP 150/88
[2024-09-10 16:00] VITALS: BP 144/96
[2024-09-10 20:00] VITALS: BP 132/86
[2024-09-11] VITALS: BP 128/84
== END 2024-09-11 01:58 | disposition short-term general hospital (02) | DRG 871 ==
LOC: ED 15:48 → EDHOLD 17:51 → 4E 17:51
PROVIDERS: Emergency Medicine; Internal Medicine; ADMIT Internal Medicine; ATTEND Internal Medicine
DX: A41.9 Sepsis, unspecified organism (principal); J15.5 Pneumonia due to Escherichia coli; J90 Pleural effusion, not elsewhere classified; C77.2 Secondary and unspecified malignant neoplasm of intra-abdominal lymph nodes; C64.1 Malignant neoplasm of right kidney, except renal pelvis; J96.11 Chronic respiratory failure with hypoxia; J44.0 Chronic obstructive pulmonary disease with (acute) lower respiratory infection; J44.1 Chronic obstructive pulmonary disease with (acute) exacerbation; D64.9 Anemia, unspecified; K76.0 Fatty (change of) liver, not elsewhere classified; R91.1 Solitary pulmonary nodule; N28.89 Other specified disorders of kidney and ureter; I50.9 Heart failure, unspecified; I11.0 Hypertensive heart disease with heart failure; K21.9 Gastro-esophageal reflux disease without esophagitis; Z83.3 Family history of diabetes mellitus; Z82.49 Family history of ischemic heart disease and other diseases of the circulatory system; Z82.3 Family history of stroke

== ENCOUNTER 2024-09-22 11:56 | Inpatient (IN) | payer OTHER ==
[~2024-09-22] VITALS: Ht 170.2 cm; Wt 94.0 kg
[~2024-09-22 11:56] MED LIST changes: +FUROSEMIDE20 M1 PO; +HYDROXYZINE HCL25 MG PO; +POTASSIUM CHLO10 ME5 PO
[2024-09-22] MEDS ORDERED: Dexamethasone Sodium Phospha 20 MG/5 ML VIAL IV ONE (12:10)
[2024-09-22] MEDS ORDERED: Piperacillin Sodium/Tazobact 100 ML IV ONE (12:10)
[2024-09-22] MEDS ORDERED: MAGNESIUM SULFATE 50 ML IV ONE ×2 (12:10→12:15)
[2024-09-22] MEDS ORDERED: Albuterol Sulf/Ipratropium 3 ML VIAL NEB SCH (12:15)
[2024-09-22 12:26] LABS: ABG BASE EXCESS -0.2 mmol/L (-2.0-3.0); ABG O2 SATURATION 91.5 % (94.0-98.0); ARTERIAL BLOOD GAS PH 7.373 (7.350-7.450); ARTERIAL BLOOD GAS PO2 62.7 mmHg (83.0-108.0)
[2024-09-22] MEDS ORDERED: IOHEXOL 300 MG/ML 100 ML VIAL IV ONE (12:35)
[2024-09-22 12:36] LABS: BASO # 0.1 10*3/uL (0.0-0.1); BASO % 0.7 % (0.0-1.0); EOS # 0.2 10*3/uL (0.0-0.4); HEMATOCRIT 44.7 % (42.0-52.0); MEAN CELL VOLUME 88.7 fl (80.0-94.0); MEAN CORPUSCULAR HGB 28.4 pg (27.0-31.0); MEAN PLATELET VOLUME 8.9 fl (9.6-12.3); MONO # 0.7 10*3/uL (0.1-1.0); MONO % 5.7 % (3.0-9.0); NEUT # 10.3 10*3/uL (2.3-7.9); NEUT % 86.8 % (47.0-73.0); PLATELET COUNT AUTOMATED 238 10*3/uL (130-400); RED BLOOD COUNT 5.04 10*6/uL (4.50-5.90); RED CELL DISTRI WIDTH 15.7 % (0-14.5); WHITE BLOOD COUNT 11.9 10*3/uL (4.8-10.8)
[2024-09-22 12:55] LABS: ACT PARTIAL THROMBO TIME 27.8 SECONDS (20.0-32.1)
[2024-09-22 13:00] LABS: ALKALINE PHOSPHATASE 195 U/L (46-116); BUN 15 mg/dl (9-23); CHLORIDE 105 mmol/L (98-107); LIPASE 23 U/L (12-53); POTASSIUM 4.1 mmol/L (3.4-5.1); SGPT/ALT < 7 U/L (5-49); TOTAL PROTEIN 7.3 gm/dL (6.0-8.0)
[2024-09-22] MEDS ORDERED: IOHEXOL 300 MG/ML 100 ML VIAL ONE (13:27)
[2024-09-22] MEDS ORDERED: LIDOCAINE HCL/EPINEPHRINE 50 ML VIAL ONE (14:10)
[2024-09-22] MEDS ORDERED: Lidocaine Hydrochloride 5 ML AMP ONE (14:14)
[2024-09-22] MEDS ORDERED: ACETAMINOPHEN 325 MG TAB PO PRN (15:10)
[2024-09-22] MEDS ORDERED: Ondansetron Hydrochloride 4 MG/2 ML VIAL IV PRN (15:10)
[2024-09-22] MEDS ORDERED: HEPARIN SODIUM 250 ML IV SCH (15:50)
[2024-09-22] MEDS ORDERED: STIMULANT LAXA1 EACH PO (15:58)
[2024-09-22] MEDS ORDERED: OXYCODONE HCL10 M1 PO (15:58)
[2024-09-22] MEDS ORDERED: ALBUTEROL HFA 90 MCG (15:59)
[2024-09-22] MEDS ORDERED: OXYCODONE HCL5 MG PO (15:59)
[2024-09-22] MEDS ORDERED: Vancomycin Hydrochloride 1,000 MG in SODIUM CHLORIDE 0.9% 250 ML IV SCH (16:00)
[2024-09-22] MEDS ORDERED: Albuterol Sulf/Ipratropium 3 ML VIAL NEB PRN (16:15)
[2024-09-22] MEDS ORDERED: Albuterol Sulf/Ipratropium 3 ML VIAL NEB ONE (16:15)
[2024-09-22 16:16] VITALS: BP 129/90
[2024-09-22] MEDS ORDERED: Metoprolol Tartrate 5 MG/5 ML VIAL IV ONE (16:20)
[2024-09-22 16:47] LABS: BILIRUBIN Negative (Negative); BLOOD Negative (Negative); CLARITY Cloudy (Clear); COLOR Yellow (Yellow); GLUCOSE Negative (Negative); KETONE Negative (Negative); LEUKO ESTERASE Negative (Negative); NITRITE Negative (Negative); SPECIFIC GRAVITY 1.025 (1.001-1.030); UROBILINOGEN 0.2 E.U./dl (0.0-1.0)
[2024-09-22] MEDS ORDERED: IOHEXOL 350 MG/ML 100 ML VIAL IV ONE (16:50)
[2024-09-22] MEDS ORDERED: SODIUM CHLORIDE 0.9% 100 ML BAG IV ONE (16:50)
[2024-09-22 17:01] LABS: MUCOUS 1+
[2024-09-22 17:02] LABS: BACTERIA 3+
[2024-09-22 17:03] LABS: URIC ACID CRYSTALS 1+
[2024-09-22 17:04] LABS: EPITHELIAL CELLS 0-2
[2024-09-22] MEDS ORDERED: SODIUM CHLORIDE 0.9% 1,000 ML IV SCH (17:20)
[2024-09-22 19:08] VITALS: BP 175/126
[2024-09-22] MEDS ORDERED: Piperacillin Sodium/Tazobact 50 ML IV SCH (20:00)
[2024-09-22] MEDS ORDERED: HYDROmorphONE Hydrochloride 1 MG/ML SYR IV ONE (20:05)
[2024-09-22] MEDS ORDERED: LIDOCAINE HCL/EPINEPHRINE 50 ML VIAL SC ONE (20:05)
[2024-09-22] MEDS ORDERED: methylPREDNISolone sod succ 40 MG VIAL IV SCH (22:00)
[2024-09-22 23:02] LABS: ABG O2 SATURATION 96.8 % (94.0-98.0); ARTERIAL BLOOD GAS PH 7.383 (7.350-7.450); ARTERIAL BLOOD GAS PO2 88.6 mmHg (83.0-108.0)
[2024-09-22 23:03] LABS: ABG BASE EXCESS -3.9 mmol/L (-2.0-3.0)
[2024-09-22] MEDS ORDERED: SODIUM CHLORIDE 0.9% 1,000 ML IV ONE (23:51)
[2024-09-23] VITALS: BP 147/92
[2024-09-23] MEDS ORDERED: MORPHINE Sulfate 2 MG/ML SYR IV SCH
[2024-09-23 04:00] VITALS: BP 155/95
[2024-09-23 05:43] LABS: ALKALINE PHOSPHATASE 171 U/L (46-116); BUN 14 mg/dl (9-23); CHLORIDE 105 mmol/L (98-107); POTASSIUM 3.8 mmol/L (3.4-5.1); SGPT/ALT 9 U/L (5-49); TOTAL PROTEIN 6.4 gm/dL (6.0-8.0)
[2024-09-23 06:18] LABS: HEMATOCRIT 39.2 % (42.0-52.0); MEAN CELL VOLUME 89.1 fl (80.0-94.0); MEAN CORPUSCULAR HGB 28.2 pg (27.0-31.0); MEAN CORPUSCULAR HGB CONC 31.6 g/dl (33.0-37.0); MEAN PLATELET VOLUME 9.4 fl (9.6-12.3); PLATELET COUNT AUTOMATED 238 10*3/uL (130-400); RED CELL DISTRI WIDTH 15.3 % (0-14.5); WHITE BLOOD COUNT 12.3 10*3/uL (4.8-10.8)
[2024-09-23 06:24] LABS: MANUAL DIFF REFLEX YES
[2024-09-23 07:05] LABS: BURR CELLS FEW; PLATELET SUFFICIENCY NORMAL (NORMAL); POLYCHROMASIA SLIGHT; ROULEAUX SLIGHT; TOTAL CELLS COUNTED 100 #CELLS
[2024-09-23 08:00] VITALS: BP 154/94
[2024-09-23] MEDS ORDERED: SODIUM CHLORIDE Nasal 44 ml bottle NAS PRN (08:50)
[2024-09-23] MEDS ORDERED: Enoxaparin Sodium 40 MG/0.4 ML SYR SC SCH (10:00)
[2024-09-23 12:00] VITALS: BP 134/88
== END 2024-09-23 13:35 | disposition short-term general hospital (02) | DRG 871 ==
LOC: ED 11:56 → EDHOLD 15:06 → ICCU 16:48
PROVIDERS: Emergency Medicine; Student in an Organized Health Care Education/Training Program; ADMIT Family Medicine; ATTEND Family Medicine
PROC: 5A09357 Assistance with Respiratory Ventilation, Less than 24 Consecutive Hours, Continuous Positive Airway Pressure (ICD-10-PCS; principal; 2024-09-22)
DX: A41.9 Sepsis, unspecified organism (principal); J18.9 Pneumonia, unspecified organism; J96.01 Acute respiratory failure with hypoxia; C64.1 Malignant neoplasm of right kidney, except renal pelvis; J95.811 Postprocedural pneumothorax; J44.0 Chronic obstructive pulmonary disease with (acute) lower respiratory infection; C34.90 Malignant neoplasm of unspecified part of unspecified bronchus or lung; E44.0 Moderate protein-calorie malnutrition; E87.20 Acidosis, unspecified; I82.412 Acute embolism and thrombosis of left femoral vein; R65.20 Severe sepsis without septic shock; K21.9 Gastro-esophageal reflux disease without esophagitis; I10 Essential (primary) hypertension; J98.4 Other disorders of lung; Z79.899 Other long term (current) drug therapy; Z79.01 Long term (current) use of anticoagulants; Z79.2 Long term (current) use of antibiotics; Z85.118 Personal history of other malignant neoplasm of bronchus and lung; Z87.891 Personal history of nicotine dependence; Z83.3 Family history of diabetes mellitus; Z82.3 Family history of stroke; Z81.8 Family history of other mental and behavioral disorders; Z68.25 Body mass index [BMI] 25.0-25.9, adult

== ENCOUNTER 2024-10-15 13:55 | Inpatient (IN) | payer OTHER ==
[~2024-10-15] VITALS: Ht 177.8 cm; Wt 82.8 kg
[~2024-10-15 13:55] MED LIST changes: +ALBUTEROL HFA 90 MCG; +OXYCODONE HCL10 M1 PO; +OXYCODONE HCL5 MG PO; +STIMULANT LAXA1 EACH PO
[2024-10-15] MEDS ORDERED: SODIUM CHLORIDE 0.9% 1,000 ML IV ONE ×3 (14:00→17:50)
[2024-10-15] MEDS ORDERED: MORPHINE Sulfate 2 MG/ML SYR IV ONE (14:00)
[2024-10-15] MEDS ORDERED: Ondansetron Hydrochloride 4 MG/2 ML VIAL IV ONE (14:00)
[2024-10-15 14:10] VITALS: BP 108/66
[2024-10-15 14:24] LABS: BASO # 0.1 10*3/uL (0.0-0.1); BASO % 0.8 % (0.0-1.0); EOS # 0.3 10*3/uL (0.0-0.4); EOS % 4.2 % (1.0-4.0); HEMATOCRIT 40.5 % (42.0-52.0); MEAN CELL VOLUME 93.1 fl (80.0-94.0); MEAN CORPUSCULAR HGB 28.7 pg (27.0-31.0); MEAN CORPUSCULAR HGB CONC 30.9 g/dl (33.0-37.0); MEAN PLATELET VOLUME 9.2 fl (9.6-12.3); MONO # 0.5 10*3/uL (0.1-1.0); MONO % 7.1 % (3.0-9.0); NEUT # 5.3 10*3/uL (2.3-7.9); NEUT % 82.1 % (47.0-73.0); PLATELET COUNT AUTOMATED 279 10*3/uL (130-400); RED BLOOD COUNT 4.35 10*6/uL (4.50-5.90); WHITE BLOOD COUNT 6.5 10*3/uL (4.8-10.8)
[2024-10-15 14:43] LABS: BUN 21 mg/dl (9-23); CHLORIDE 99 mmol/L (98-107); LIPASE 21 U/L (12-53)
[2024-10-15 17:44] LABS: BILIRUBIN Negative (Negative); BLOOD 3+ (Negative); CLARITY Clear (Clear); COLOR Yellow (Yellow); GLUCOSE Negative (Negative); KETONE Negative (Negative); LEUKO ESTERASE Trace (Negative); NITRITE Negative (Negative); PH 5.5 (4.5-8.0); UROBILINOGEN 0.2 E.U./dl (0.0-1.0)
[2024-10-15 17:55] LABS: BACTERIA 1+; RBC TNTC rbc/hpf (0-2)
[2024-10-15] MEDS ORDERED: Ceftriaxone Sodium 1 GM/10 ML SYR IV ONE (18:05)
[2024-10-15] MEDS ORDERED: BUMETANIDE0.5 MG PO (19:07)
[2024-10-15] MEDS ORDERED: ELIQUIS5 M1 PO (19:11)
[2024-10-15] MEDS ORDERED: FLOMAX0.4 MG PO (19:12)
[2024-10-15] MEDS ORDERED: MUCUS RELIEF E600 MG PO (19:13)
[2024-10-15] MEDS ORDERED: SALINE NOSE SPR45 ML NAS (19:14)
[2024-10-15] MEDS ORDERED: 24 HOUR ALLERG9.9 ML NAS (19:17)
[2024-10-15] MEDS ORDERED: ONDANSETRON HYDR4 MG PO (19:18)
[2024-10-15] MEDS ORDERED: Ipratropium Brom3 ML INH (19:19)
[2024-10-15] MEDS ORDERED: PULMICORT0.5 MG/2 M INH (19:21)
[2024-10-15] MEDS ORDERED: MIRALAX17 GM PO (19:22)
[2024-10-15 20:00] VITALS: BP 112/78
[2024-10-15] MEDS ORDERED: Ondansetron Hydrochloride 4 MG/2 ML VIAL IV PRN (23:05)
[2024-10-15] MEDS ORDERED: Polyethylene Glycol 3350 17 GM PACKET PO PRN (23:35)
[2024-10-16] MEDS ORDERED: Albuterol Sulf/Ipratropium 3 ML VIAL NEB SCH
[2024-10-16] MEDS ORDERED: OXYCODONE HCL (IR) 5 MG TAB PO PRN (00:15)
[2024-10-16 06:00] VITALS: BP 113/65
[2024-10-16] MEDS ORDERED: Ceftriaxone Sodium 2 GM in SYRINGE INFUSION 20 ML IV SCH (06:00)
[2024-10-16 06:14] LABS: ALKALINE PHOSPHATASE 137 U/L (46-116); BUN 19 mg/dl (9-23); CHLORIDE 100 mmol/L (98-107); POTASSIUM 3.9 mmol/L (3.4-5.1); SGPT/ALT < 7 U/L (5-49); TOTAL PROTEIN 6.1 gm/dL (6.0-8.0)
[2024-10-16 06:26] LABS: BASO # 0.1 10*3/uL (0.0-0.1); BASO % 0.9 % (0.0-1.0); EOS # 0.4 10*3/uL (0.0-0.4); HEMATOCRIT 37.4 % (42.0-52.0); MEAN CELL VOLUME 92.8 fl (80.0-94.0); MEAN CORPUSCULAR HGB CONC 31.3 g/dl (33.0-37.0); MEAN PLATELET VOLUME 9.4 fl (9.6-12.3); MONO # 0.5 10*3/uL (0.1-1.0); MONO % 7.3 % (3.0-9.0); NEUT # 5.1 10*3/uL (2.3-7.9); NEUT % 78.8 % (47.0-73.0); PLATELET COUNT AUTOMATED 284 10*3/uL (130-400); RED BLOOD COUNT 4.03 10*6/uL (4.50-5.90); RED CELL DISTRI WIDTH 15.9 % (0-14.5); WHITE BLOOD COUNT 6.5 10*3/uL (4.8-10.8)
[2024-10-16] MEDS ORDERED: BUDESONIDE 0.5 MG AMP NEB SCH (07:49)
[2024-10-16 09:15] VITALS: BP 105/72
[2024-10-16] MEDS ORDERED: APIXABAN 5 MG TAB PO SCH (10:00)
[2024-10-16] MEDS ORDERED: GUAIFENESIN 600 MG TAB ER PO SCH (10:00)
[2024-10-16] MEDS ORDERED: Tamsulosin Hydrochloride 0.4 MG CAP PO SCH (10:00)
[2024-10-16] MEDS ORDERED: BUMETANIDE 0.5 MG TAB PO SCH (10:00)
[2024-10-16 15:19] VITALS: BP 108/68
[2024-10-16 19:45] VITALS: BP 106/70
[2024-10-16 21:06] VITALS: BP 123/72
[2024-10-17] VITALS: BP 124/68
[2024-10-17 06:41] LABS: BASO % 0.4 % (0.0-1.0); EOS # 0.4 10*3/uL (0.0-0.4); EOS % 5.4 % (1.0-4.0); HEMATOCRIT 37.3 % (42.0-52.0); MEAN CELL VOLUME 92.1 fl (80.0-94.0); MEAN CORPUSCULAR HGB 28.6 pg (27.0-31.0); MEAN CORPUSCULAR HGB CONC 31.1 g/dl (33.0-37.0); MEAN PLATELET VOLUME 9.5 fl (9.6-12.3); MONO # 0.5 10*3/uL (0.1-1.0); MONO % 7.5 % (3.0-9.0); NEUT # 5.4 10*3/uL (2.3-7.9); NEUT % 80.3 % (47.0-73.0); PLATELET COUNT AUTOMATED 287 10*3/uL (130-400); RED BLOOD COUNT 4.05 10*6/uL (4.50-5.90); WHITE BLOOD COUNT 6.7 10*3/uL (4.8-10.8)
[2024-10-17 06:42] LABS: BUN 16 mg/dl (9-23); CHLORIDE 101 mmol/L (98-107); POTASSIUM 3.7 mmol/L (3.4-5.1)
[2024-10-17 08:00] VITALS: BP 111/74
[2024-10-17 12:00] VITALS: BP 110/77
[2024-10-17 16:00] VITALS: BP 117/67
[2024-10-17 20:00] VITALS: BP 107/76
[2024-10-18] VITALS: BP 124/76
[2024-10-18] MEDS ORDERED: Albuterol Sulf/Ipratropium 3 ML VIAL NEB ONE (06:03)
[2024-10-18 06:13] LABS: BUN 15 mg/dl (9-23); CHLORIDE 102 mmol/L (98-107); POTASSIUM 3.6 mmol/L (3.4-5.1)
[2024-10-18 07:06] LABS: BASO # 0.1 10*3/uL (0.0-0.1); BASO % 0.7 % (0.0-1.0); EOS # 0.3 10*3/uL (0.0-0.4); EOS % 4.4 % (1.0-4.0); HEMATOCRIT 38.8 % (42.0-52.0); MEAN CELL VOLUME 93.9 fl (80.0-94.0); MEAN CORPUSCULAR HGB 28.1 pg (27.0-31.0); MEAN CORPUSCULAR HGB CONC 29.9 g/dl (33.0-37.0); MEAN PLATELET VOLUME 9.5 fl (9.6-12.3); MONO # 0.5 10*3/uL (0.1-1.0); MONO % 6.6 % (3.0-9.0); NEUT # 5.7 10*3/uL (2.3-7.9); NEUT % 82.4 % (47.0-73.0); PLATELET COUNT AUTOMATED 297 10*3/uL (130-400); RED BLOOD COUNT 4.13 10*6/uL (4.50-5.90); WHITE BLOOD COUNT 6.9 10*3/uL (4.8-10.8)
[2024-10-18 08:00] VITALS: BP 110/76
[2024-10-18] MEDS ORDERED: POTASSIUM CHLO20 ME4 PO (08:01)
[2024-10-18] MEDS ORDERED: FUROSEMIDE40 MG PO (08:01)
[2024-10-18] MEDS ORDERED: SODIUM CHLORIDE Nasal 44 ml bottle NAS PRN (08:10)
[2024-10-18] MEDS ORDERED: Ceftriaxone Sodium 1 GM in SYRINGE INFUSION 10 ML IV SCH (10:00)
[2024-10-18 12:00] VITALS: BP 118/72
[2024-10-18 16:00] VITALS: BP 98/66
[2024-10-18 17:07] VITALS: BP 106/62
[2024-10-18 20:00] VITALS: BP 113/92
[2024-10-19] VITALS: BP 127/71
[2024-10-19 06:35] LABS: BASO # 0.1 10*3/uL (0.0-0.1); BASO % 0.7 % (0.0-1.0); BUN 15 mg/dl (9-23); CHLORIDE 99 mmol/L (98-107); EOS # 0.3 10*3/uL (0.0-0.4); EOS % 4.1 % (1.0-4.0); MEAN CELL VOLUME 94.4 fl (80.0-94.0); MEAN CORPUSCULAR HGB 28.3 pg (27.0-31.0); MEAN PLATELET VOLUME 9.5 fl (9.6-12.3); MONO # 0.6 10*3/uL (0.1-1.0); MONO % 7.9 % (3.0-9.0); NEUT # 6.2 10*3/uL (2.3-7.9); NEUT % 81.7 % (47.0-73.0); PLATELET COUNT AUTOMATED 301 10*3/uL (130-400); POTASSIUM 3.4 mmol/L (3.4-5.1); RED BLOOD COUNT 4.13 10*6/uL (4.50-5.90); RED CELL DISTRI WIDTH 15.9 % (0-14.5); WHITE BLOOD COUNT 7.6 10*3/uL (4.8-10.8)
[2024-10-19] MEDS ORDERED: Pantoprazole Sodium 20 MG TAB PO SCH (07:10)
[2024-10-19 07:42] LABS: ACT PARTIAL THROMBO TIME 28.1 SECONDS (20.0-32.1)
[2024-10-19 08:00] VITALS: BP 105/70
[2024-10-19 12:00] VITALS: BP 116/68
[2024-10-19 14:21] LABS: BF LYMPHOCYTES 35 %; BF MACROPHAGES 19 %; BF MESOTHELIALS 6 %; BF NEUTROPHILS 38 %
[2024-10-19 16:00] VITALS: BP 111/75
[2024-10-19 20:00] VITALS: BP 114/73
[2024-10-19] MEDS ORDERED: Loratadine/Pseudoephedrine S 1 TAB TAB PO SCH (23:35)
[2024-10-20] VITALS: BP 120/68
[2024-10-20 06:16] LABS: BASO # 0.1 10*3/uL (0.0-0.1); BASO % 0.6 % (0.0-1.0); EOS # 0.3 10*3/uL (0.0-0.4); HEMATOCRIT 36.9 % (42.0-52.0); MEAN CELL VOLUME 92.7 fl (80.0-94.0); MEAN CORPUSCULAR HGB 28.6 pg (27.0-31.0); MEAN CORPUSCULAR HGB CONC 30.9 g/dl (33.0-37.0); MEAN PLATELET VOLUME 9.3 fl (9.6-12.3); MONO # 0.6 10*3/uL (0.1-1.0); MONO % 7.8 % (3.0-9.0); NEUT # 6.6 10*3/uL (2.3-7.9); NEUT % 84.1 % (47.0-73.0); PLATELET COUNT AUTOMATED 292 10*3/uL (130-400); RED BLOOD COUNT 3.98 10*6/uL (4.50-5.90); RED CELL DISTRI WIDTH 15.8 % (0-14.5); WHITE BLOOD COUNT 7.8 10*3/uL (4.8-10.8)
[2024-10-20 08:00] VITALS: BP 103/73
[2024-10-20] MEDS ORDERED: Loratadine/Pseudoephedrine S 1 TAB TAB PO SCH (10:00)
[2024-10-20 11:06] LABS: ACID FAST SPEC PROCESSING Concentration (.)
[2024-10-20 12:00] VITALS: BP 116/75
[2024-10-20 16:00] VITALS: BP 114/78
[2024-10-20 20:00] VITALS: BP 114/73
[2024-10-20] MEDS ORDERED: Melatonin 5 MG TABLET PO PRN (20:45)
[2024-10-21] VITALS: BP 110/75
[2024-10-21 06:33] LABS: BASO # 0.1 10*3/uL (0.0-0.1); BASO % 0.9 % (0.0-1.0); EOS # 0.3 10*3/uL (0.0-0.4); EOS % 4.1 % (1.0-4.0); HEMATOCRIT 37.7 % (42.0-52.0); MEAN CELL VOLUME 92.6 fl (80.0-94.0); MEAN CORPUSCULAR HGB 28.7 pg (27.0-31.0); MEAN PLATELET VOLUME 9.6 fl (9.6-12.3); MONO # 0.7 10*3/uL (0.1-1.0); MONO % 8.1 % (3.0-9.0); NEUT # 6.6 10*3/uL (2.3-7.9); NEUT % 82.4 % (47.0-73.0); PLATELET COUNT AUTOMATED 293 10*3/uL (130-400); RED BLOOD COUNT 4.07 10*6/uL (4.50-5.90); RED CELL DISTRI WIDTH 15.6 % (0-14.5)
[2024-10-21 08:00] VITALS: BP 109/77
[2024-10-21 12:00] VITALS: BP 111/61
[2024-10-21 16:00] VITALS: BP 107/76
== END 2024-10-21 18:20 | DRG 871 ==
LOC: ED 13:55 → EDHOLD 18:43 → 4E 18:43
PROVIDERS: Emergency Medicine; Student in an Organized Health Care Education/Training Program; ADMIT Internal Medicine; ATTEND Internal Medicine
PROC: 5A0935A Assistance with Respiratory Ventilation, Less than 24 Consecutive Hours, High Flow/Velocity Cannula (ICD-10-PCS; 2024-10-16)
PROC: 0W9G3ZZ Drainage of Peritoneal Cavity, Percutaneous Approach (ICD-10-PCS; principal; 2024-10-19)
DX: A41.9 Sepsis, unspecified organism (principal); E43 Unspecified severe protein-calorie malnutrition; C34.90 Malignant neoplasm of unspecified part of unspecified bronchus or lung; N39.0 Urinary tract infection, site not specified; E87.20 Acidosis, unspecified; R18.8 Other ascites; C64.9 Malignant neoplasm of unspecified kidney, except renal pelvis; D64.9 Anemia, unspecified; K40.90 Unilateral inguinal hernia, without obstruction or gangrene, not specified as recurrent; J44.9 Chronic obstructive pulmonary disease, unspecified; K76.0 Fatty (change of) liver, not elsewhere classified; R65.20 Severe sepsis without septic shock; K21.9 Gastro-esophageal reflux disease without esophagitis; I10 Essential (primary) hypertension; Z93.8 Other artificial opening status; Z87.891 Personal history of nicotine dependence; Z79.899 Other long term (current) drug therapy; Z68.26 Body mass index [BMI] 26.0-26.9, adult

== ENCOUNTER 2024-10-31 20:36 | Inpatient (IN) | payer OTHER ==
[~2024-10-31] VITALS: Ht 177.8 cm; Wt 92.7 kg
[~2024-10-31 20:36] MED LIST changes: +24 HOUR ALLERG9.9 ML NAS; +BUMETANIDE0.5 MG PO; +ELIQUIS5 M1 PO; +FLOMAX0.4 MG PO; +FUROSEMIDE40 MG PO; +Ipratropium Brom3 ML INH; +MIRALAX17 GM PO; +MUCUS RELIEF E600 MG PO; +POTASSIUM CHLO20 ME4 PO; +PULMICORT0.5 MG/2 M INH; +SALINE NOSE SPR45 ML NAS
[2024-10-31 20:40] VITALS: BP 109/66
[2024-10-31 21:18] LABS: BASO # 0.1 10*3/uL (0.0-0.1); BASO % 0.9 % (0.0-1.0); EOS # 0.3 10*3/uL (0.0-0.4); EOS % 3.9 % (1.0-4.0); HEMATOCRIT 39.8 % (42.0-52.0); MEAN CELL VOLUME 93.2 fl (80.0-94.0); MEAN CORPUSCULAR HGB 28.6 pg (27.0-31.0); MEAN CORPUSCULAR HGB CONC 30.7 g/dl (33.0-37.0); MEAN PLATELET VOLUME 9.2 fl (9.6-12.3); MONO # 0.6 10*3/uL (0.1-1.0); NEUT # 6.9 10*3/uL (2.3-7.9); NEUT % 83.2 % (47.0-73.0); PLATELET COUNT AUTOMATED 279 10*3/uL (130-400); RED BLOOD COUNT 4.27 10*6/uL (4.50-5.90); WHITE BLOOD COUNT 8.2 10*3/uL (4.8-10.8)
[2024-10-31 21:35] LABS: BUN 15 mg/dl (9-23); CHLORIDE 98 mmol/L (98-107); POTASSIUM 4.8 mmol/L (3.4-5.1)
[2024-10-31] MEDS ORDERED: SODIUM CHLORIDE 0.9% 1,000 ML IV ONE (22:10)
[2024-10-31] MEDS ORDERED: Acetaminophen/Hydrocodone HP 10/325 PO ONE (22:30)
[2024-10-31] MEDS ORDERED: AZITHROMYCIN 250 ML IV ONE (22:30)
[2024-10-31] MEDS ORDERED: Ceftriaxone Sodium 1 GM/10 ML SYR IV ONE (22:30)
[2024-10-31] MEDS ORDERED: TEMAZEPAM 15 MG CAP PO PRN (23:05)
[2024-10-31] MEDS ORDERED: BISACODYL 10 MG SUPP R PRN (23:05)
[2024-10-31] MEDS ORDERED: ACETAMINOPHEN 325 MG TAB PO PRN (23:05)
[2024-10-31] MEDS ORDERED: BISACODYL 5 MG TAB PO PRN (23:05)
[2024-10-31] MEDS ORDERED: ACETAMINOPHEN 650 MG SUPP R PRN (23:05)
[2024-10-31] MEDS ORDERED: MORPHINE Sulfate 2 MG/ML SYR IV PRN (23:05)
[2024-10-31] MEDS ORDERED: Ondansetron Hydrochloride 4 MG/2 ML VIAL IV PRN (23:05)
[2024-10-31] MEDS ORDERED: Acetaminophen/Hydrocodone 5 MG/325 MG TABLET PO PRN (23:05)
[2024-10-31] MEDS ORDERED: Magnesium Hydroxide 30 ML UDC PO PRN (23:05)
[2024-10-31] MEDS ORDERED: LEVOFLOXACIN 750 MG TAB PO SCH (23:20)
[2024-10-31] MEDS ORDERED: SODIUM CHLORIDE 0.9% 100 ML BAG IV ONE (23:25)
[2024-10-31] MEDS ORDERED: IOHEXOL 350 MG/ML 100 ML VIAL IV ONE (23:25)
[2024-10-31] MEDS ORDERED: APIXABAN 5 MG TAB PO SCH (23:25)
[2024-11-01] VITALS (10 sets, daily range): BP systolic 94–154; BP diastolic 64–87
[2024-11-01] MEDS ORDERED: CEFEPIME HYDROCHLORIDE IV ONE
[2024-11-01] MEDS ORDERED: INFUSION IV ONE
[2024-11-01] MEDS ORDERED: Albuterol Sulf/Ipratropium 3 ML VIAL NEB PRN (00:05)
[2024-11-01] MEDS ORDERED: Vancomycin Hydrochloride 750 MG in SODIUM CHLORIDE 0.9% 250 ML IV ONE (01:00)
[2024-11-01 02:17] LABS: BASO # 0.1 10*3/uL (0.0-0.1); BASO % 0.9 % (0.0-1.0); EOS # 0.3 10*3/uL (0.0-0.4); EOS % 4.3 % (1.0-4.0); HEMATOCRIT 38.1 % (42.0-52.0); MEAN CELL VOLUME 93.6 fl (80.0-94.0); MEAN CORPUSCULAR HGB 28.3 pg (27.0-31.0); MEAN CORPUSCULAR HGB CONC 30.2 g/dl (33.0-37.0); MEAN PLATELET VOLUME 8.9 fl (9.6-12.3); MONO # 0.6 10*3/uL (0.1-1.0); MONO % 7.6 % (3.0-9.0); NEUT % 81.6 % (47.0-73.0); PLATELET COUNT AUTOMATED 284 10*3/uL (130-400); RED BLOOD COUNT 4.07 10*6/uL (4.50-5.90); RED CELL DISTRI WIDTH 14.9 % (0-14.5); WHITE BLOOD COUNT 7.4 10*3/uL (4.8-10.8)
[2024-11-01 02:37] LABS: ALKALINE PHOSPHATASE 147 U/L (46-116); BUN 18 mg/dl (9-23); CHLORIDE 98 mmol/L (98-107); CHOLESTEROL 105 mg/dL (<200); LDL CHOLESTEROL 45 mg/dL (9-159); POTASSIUM 4.3 mmol/L (3.4-5.1); TOTAL PROTEIN 5.9 gm/dL (6.0-8.0); TRIGLYCERIDES 159 mg/dl (<150)
[2024-11-01 02:38] LABS: SGPT/ALT < 7 U/L (5-49)
[2024-11-01 05:24] LABS: BILIRUBIN Negative (Negative); BLOOD 1+ (Negative); CLARITY Clear (Clear); COLOR Yellow (Yellow); GLUCOSE Negative (Negative); KETONE Negative (Negative); LEUKO ESTERASE Trace (Negative); NITRITE Negative (Negative); SPECIFIC GRAVITY >= 1.030 (1.001-1.030); UROBILINOGEN 0.2 E.U./dl (0.0-1.0)
[2024-11-01] MEDS ORDERED: SODIUM CHLORIDE 0.9% 50 ML BAG IV ONE (08:19)
[2024-11-01] MEDS ORDERED: Cefepime Hydrochloride 1 GM VIAL IV ONE (08:19)
[2024-11-01] MEDS ORDERED: Vancomycin Hydrochloride 1,000 MG/250 ML BAG IV ONE (08:19)
[2024-11-01] MEDS ORDERED: CEFEPIME HCL IN DEXTROSE 5 % 50 ML IV SCH (10:00)
[2024-11-01] MEDS ORDERED: Vancomycin Hydrochloride 250 ML IV SCH (16:00)
[2024-11-01] MEDS ORDERED: Vancomycin Hydrochloride 1,000 MG in SODIUM CHLORIDE 0.9% 250 ML IV SCH (16:00)
[2024-11-02 04:18] VITALS: BP 111/74
[2024-11-02 06:38] LABS: BASO # 0.1 10*3/uL (0.0-0.1); BASO % 0.9 % (0.0-1.0); EOS # 0.4 10*3/uL (0.0-0.4); HEMATOCRIT 37.4 % (42.0-52.0); MEAN CELL VOLUME 92.8 fl (80.0-94.0); MEAN CORPUSCULAR HGB 28.5 pg (27.0-31.0); MEAN CORPUSCULAR HGB CONC 30.7 g/dl (33.0-37.0); MEAN PLATELET VOLUME 9.4 fl (9.6-12.3); MONO # 0.7 10*3/uL (0.1-1.0); MONO % 8.8 % (3.0-9.0); NEUT # 6.3 10*3/uL (2.3-7.9); NEUT % 79.9 % (47.0-73.0); PLATELET COUNT AUTOMATED 286 10*3/uL (130-400); RED BLOOD COUNT 4.03 10*6/uL (4.50-5.90); WHITE BLOOD COUNT 7.9 10*3/uL (4.8-10.8)
[2024-11-02 06:47] LABS: ACT PARTIAL THROMBO TIME 32.2 SECONDS (20.0-32.1)
[2024-11-02 06:53] LABS: BUN 17 mg/dl (9-23); CHLORIDE 100 mmol/L (98-107); POTASSIUM 4.1 mmol/L (3.4-5.1)
[2024-11-02 08:00] VITALS: BP 99/71
[2024-11-02] MEDS ORDERED: SODIUM BICARBONATE 4.2% 5 ML VIAL ONE (08:49)
[2024-11-02] MEDS ORDERED: PHENOL/NA PHENOLATE 20 ML THROAT SPRAY T PRN (11:35)
[2024-11-02 12:00] VITALS: BP 102/71
[2024-11-02 16:00] VITALS: BP 102/73
[2024-11-02 20:00] VITALS: BP 98/65
[2024-11-03] VITALS: BP 104/63
[2024-11-03 06:10] LABS: BASO # 0.1 10*3/uL (0.0-0.1); EOS # 0.4 10*3/uL (0.0-0.4); EOS % 5.1 % (1.0-4.0); HEMATOCRIT 38.9 % (42.0-52.0); MEAN CELL VOLUME 94.2 fl (80.0-94.0); MEAN CORPUSCULAR HGB 28.3 pg (27.0-31.0); MEAN CORPUSCULAR HGB CONC 30.1 g/dl (33.0-37.0); MEAN PLATELET VOLUME 9.4 fl (9.6-12.3); MONO # 0.7 10*3/uL (0.1-1.0); MONO % 8.3 % (3.0-9.0); NEUT # 7.1 10*3/uL (2.3-7.9); NEUT % 81.2 % (47.0-73.0); PLATELET COUNT AUTOMATED 306 10*3/uL (130-400); RED BLOOD COUNT 4.13 10*6/uL (4.50-5.90); WHITE BLOOD COUNT 8.7 10*3/uL (4.8-10.8)
[2024-11-03 06:25] LABS: BUN 15 mg/dl (9-23); CHLORIDE 100 mmol/L (98-107)
[2024-11-03 08:00] VITALS: BP 98/63
[2024-11-03] MEDS ORDERED: BUMETANIDE 0.5 MG TAB PO ONE (09:45)
[2024-11-03] MEDS ORDERED: Tamsulosin Hydrochloride 0.4 MG CAP PO SCH (10:00)
[2024-11-03] MEDS ORDERED: BUMETANIDE 1 MG TAB PO SCH (10:00)
[2024-11-03] MEDS ORDERED: LORATADINE 10 MG TAB PO SCH (10:00)
[2024-11-03] MEDS ORDERED: BUMETANIDE 0.5 MG TAB PO SCH (10:00)
[2024-11-03] MEDS ORDERED: BUMETANIDE1 MG PO (11:13)
[2024-11-03] MEDS ORDERED: OXYCODONE HCL5 MG PO (11:13)
[2024-11-03 12:00] VITALS: BP 98/68
== END 2024-11-03 13:22 | DRG 871 ==
LOC: ED 20:36 → 4E 22:36 → EDHOLD 22:36 → 4E 11-01 22:01
PROVIDERS: Nurse Practitioner Family; Student in an Organized Health Care Education/Training Program; ADMIT Internal Medicine; ATTEND Internal Medicine
PROC: 0W9G3ZZ Drainage of Peritoneal Cavity, Percutaneous Approach (ICD-10-PCS; principal; 2024-11-02)
DX: A41.9 Sepsis, unspecified organism (principal); E43 Unspecified severe protein-calorie malnutrition; J18.9 Pneumonia, unspecified organism; J96.21 Acute and chronic respiratory failure with hypoxia; E87.1 Hypo-osmolality and hyponatremia; E87.20 Acidosis, unspecified; C78.02 Secondary malignant neoplasm of left lung; C78.01 Secondary malignant neoplasm of right lung; C79.51 Secondary malignant neoplasm of bone; R18.0 Malignant ascites; J44.0 Chronic obstructive pulmonary disease with (acute) lower respiratory infection; K21.9 Gastro-esophageal reflux disease without esophagitis; R65.20 Severe sepsis without septic shock; R73.9 Hyperglycemia, unspecified; K76.0 Fatty (change of) liver, not elsewhere classified; R53.81 Other malaise; D50.9 Iron deficiency anemia, unspecified; Z83.3 Family history of diabetes mellitus; Z82.3 Family history of stroke; Z85.118 Personal history of other malignant neoplasm of bronchus and lung; Z86.718 Personal history of other venous thrombosis and embolism; Z68.29 Body mass index [BMI] 29.0-29.9, adult

== ENCOUNTER → 2024-12-03 | Outpatient (CLI) | payer OTHER ==
[~2024-12-03] MED LIST changes: +BUMETANIDE1 MG PO; +IOHEXOL 300 MG/ML 100 ML VIAL IV ONE; +IOHEXOL 300 MG/ML 100 ML VIAL ONE
== END | disposition home or self-care (01) ==
LOC: CT 10:51
PROVIDERS: ATTEND Internal Medicine Hematology & Oncology
DX: C64.9 Malignant neoplasm of unspecified kidney, except renal pelvis (principal); J90 Pleural effusion, not elsewhere classified; R91.8 Other nonspecific abnormal finding of lung field; R16.0 Hepatomegaly, not elsewhere classified

== ENCOUNTER → 2024-12-07 | Outpatient (CLI) | payer OTHER ==
[~2024-12-07] MED LIST changes: -IOHEXOL 300 MG/ML 100 ML VIAL IV ONE; -IOHEXOL 300 MG/ML 100 ML VIAL ONE
== END | disposition home or self-care (01) ==
LOC: EDSTATUS 13:00
PROVIDERS: ATTEND Internal Medicine
DX: R18.8 Other ascites (principal)